=== PATIENT | female | born 1970 | race Caucasian/White ===

== ENCOUNTER → 2016-04-27 | Outpatient (CLI) | payer OTHER | END | disposition home or self-care (01) | LOC: RAD.S 09:08 | DX: Z12.31 Encounter for screening mammogram for malignant neoplasm of breast (principal) ==

== ENCOUNTER 2016-04-28 15:13 | Emergency (ER) | payer OTHER ==
--- NOTE | 2016-05-08 06:57 | ER ---
ADMIT: 04/28/2016 RM/LOC: ER [facility] MR#: [id number] [address] [id number] HARSH BRYSON [address] [place] [address] Emergency Room Report SEX: F AGE: 46 : 1970 DATE: 04/28/2016 CHIEF COMPLAINT: Back pain and chest pain. HISTORY OF PRESENT ILLNESS: The patient is a 46-year-old female, who has a history of hyperlipidemia, high cholesterol, and some coronary artery disease, who presents to the ER complaining of severe pain that began a few hours ago. She said she had lunch and had not felt great all day but shortly after developed severe pain in her back to her shoulder blades and developed a sharp stabbing pain in the center of her chest. She did not note this is was any worse with exertion, could not get comfortable, did not feel short of breath but did have some slight pain with deep breaths, but it did not really affect it. She denies any abdominal pain, has not had any nausea or vomiting. She states it feels like her head is going to pop off because she feels like her blood pressure is so high. She denies any numbness, tingling, or weakness in any extremity. She has not had any recent fevers or chills. No change in bowel or bladder function. She states as far as her cardiac history, did have an EKG in the past that showed that she might have had an MS. She has been noncompliant with her blood pressure and hypercholesterolemia until recently when she started seeing Josephine Garcia PA-C, who started her on some medications. She has never been told she has any issues with her aorta in the past. REVIEW OF SYSTEMS: Ten-point review of systems is done and otherwise negative. PAST MEDICAL HISTORY: Significant for hypertension, hyperlipidemia, coronary artery disease, questionable previous MS. MEDICATIONS: See nurse's note. ALLERGIES: SEE NURSE'S NOTE. SOCIAL HISTORY: The patient has been smoking since the age of 10. She denies drug or alcohol use. PHYSICAL EXAMINATION: VITAL SIGNS: Initial blood pressure is 173/92, pulse 131, respirations 29, temp 96.8, sats 97% on room air. GENERAL: The patient is quite uncomfortable. Does appear to be in pain, is anxious. HEAD: Atraumatic. NECK: Supple. Airway is patent. HEART: Tachycardic. LUNGS: Clear to auscultation. CHEST: Nontender. ABDOMEN: Soft, nontender. I do not feel pulsatile mass in the abdomen. EXTREMITIES: She has equal pulses, bilateral lower extremities and upper extremities. I see no skin lesions or rashes. She has no pedal edema, Homans sign, or calf tenderness. ADMIT: 04/28/2016 RM/LOC: [facility] MR#: [id number] [address] [place] [id number] HARSH BRYSON [address] [place] [address] Emergency Room Report SEX: F AGE: 46 : 1970 LABORATORY DATA: CBC is normal. Chemistries normal. Cardiac enzymes are normal. EKG shows sinus tachycardia, rate of 133. CT chest, abdomen, and pelvis dissection study shows what appears to be a dissection in her distal aorta just proximal to the bifurcation of her iliacs. The timing was not ideal to visualize her proximal aorta. Due to the patient's symptoms, I have very high suspicion that she has proximal aortic injury. She received morphine IV and some Ativan IV initially. Did not really help her pain. She was then given Dilaudid IV with some slight improvement in her symptoms. This was followed by additional dose of Ativan and some Lopressor IV. At this point, I believe due to my high suspicion of a vascular injury in the patient, I am uncomfortable keeping her in our facility. So, I contacted [facility] in [place]. I spoke to Dr. Chung. Dr. Chung has agreed to accept the patient to their facility and we have arranged for air transport for the patient. The patient is transported in critical condition with a diagnosis of: 1. Chest pain. 2. Back pain. 3. Anxiety. 4. Hypertension. 5. Distal aortic dissection. 6. Concern for proximal aortic dissection also. There is 1 hour critical care time spent on this patient. Cuong Hernandez MD/ cal JOB #: [id number] CC: Cuong Hernandez MD, Attending Physician Josephine Garcia PA-C, Family Physician
== END 2016-04-28 17:12 | disposition short-term general hospital (02) ==
LOC: ER 15:13
DX: I71.01 Dissection of thoracic aorta (principal); I10 Essential (primary) hypertension; F41.9 Anxiety disorder, unspecified; E78.00 Pure hypercholesterolemia, unspecified; E03.9 Hypothyroidism, unspecified; F17.210 Nicotine dependence, cigarettes, uncomplicated; Z90.49 Acquired absence of other specified parts of digestive tract

== ENCOUNTER → 2016-07-12 | Outpatient (CLI) | payer OTHER | END | disposition home or self-care (01) | LOC: RAD.S 15:00 | DX: S00.12XA Contusion of left eyelid and periocular area, initial encounter (principal); H53.9 Unspecified visual disturbance ==